=== PATIENT | male | born 1995 | race Two or more races ===

== ENCOUNTER 2023-11-04 00:19 | Emergency (ER) | payer SELFPAY ==
[~2023-11-04] VITALS: Ht 170.2 cm; Wt 80.0 kg
[2023-11-04 01:30] VITALS: BP 139/78; PULSE 116; RESP 18; O2SAT 96
== END 2023-11-04 00:50 | disposition left against medical advice (07) ==
LOC: EDBD 00:19 → ER 00:19
DX: Z53.21 Procedure and treatment not carried out due to patient leaving prior to being seen by health care provider (principal)

== ENCOUNTER 2024-03-28 11:38 | Emergency (ER) | payer MEDICAID, OTHER ==
[~2024-03-28] VITALS: Ht 170.2 cm; Wt 85.2 kg
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
[2024-03-28] MEDS: TETRACAINE HCL 0.5% OPTH(EYE) SOLN 4ML LEFTEYE ONE (12:33)
[2024-03-28] MEDS: FLUORESCEIN SOD OPTH TEST STRIP RIGHTEYE ONE (12:34)
[2024-03-28] MEDS ORDERED: ERY05OO OP (12:43)
[2024-03-28] MEDS ORDERED: DICL0.1S20 OP (12:43)
[2024-03-28] MEDS ORDERED: CYCL1SOL20 OP (12:43)
[2024-03-28 12:55] VITALS: BP 132/70; PULSE 70; RESP 16; TEMP 98.1; O2SAT 97
== END 2024-03-28 12:58 | disposition home or self-care (01) ==
LOC: ER 11:38
DX: T26.32XA Burns of other specified parts of left eye and adnexa, initial encounter (principal); X08.8XXA Exposure to other specified smoke, fire and flames, initial encounter; Y93.89 Activity, other specified; Y92.89 Other specified places as the place of occurrence of the external cause; Y99.8 Other external cause status